=== PATIENT | male | born 1955 | race Caucasian/White ===

== ENCOUNTER → 2024-03-06 10:50 | Outpatient (REF) | payer OTHER, SELFPAY ==
[2024-03-06 13:17] LABS: % Basophils 0.7 % (0-2); % Eosinophils 0.9 % (0-6); % Immature Granulocytes 0.3 % (0-0.5); % Lymphocytes 16.3 % (20.5-51.1); % Monocytes 5.7 % (1.7-9.3); % Neutrophils 76.1 % (42.2-75.2); Absolute Basophils 0.1 10^3/uL (0-0.2); Absolute Eosinophils 0.1 10^3/uL (0-0.7); Absolute Lymphocytes 1.8 10^3/uL (1.2-3.4); Absolute Monocytes 0.6 10^3/uL (0.1-0.6); Absolute Neutrophils 8.2 10^3/uL (1.4-6.5); Hematocrit 42.9 % (39.0-52.0); Hemoglobin 13.8 g/dL (13.0-18.0); Mean Corp Hgb Conc. 32.2 g/dL (33.0-37.0); Mean Corpuscular Hgb 27.6 pg (27.0-31.0); Mean Corpuscular Volume 85.8 fL (80.0-94.0); Nucleated Red Blood Cells % 0 % (-); Platelet Count 282 10^3/uL (130-400); Red Cell Dist. Width 14.3 % (11.5-14.5); White Blood Cell Count 10.7 10^3/uL (4.8-10.8)
[2024-03-06 13:32] LABS: Urine Albumin 2+ (Neg - Trace); Urine Bilirubin Negative (Negative); Urine Character Clear (Clear); Urine Color Yellow; Urine Glucose 3+ (Negative); Urine Ketone Negative (Negative); Urine Leukocyte Negative (Negative); Urine Nitrite Negative (Negative); Urine Occult Blood Negative (Negative); Urine Urobilinogen Negative (Neg - 1+)
[2024-03-06 13:49] LABS: ALT (SGPT) 14 U/L (0-50); AST (SGOT) 18 U/L (17-59); Albumin 4.5 g/dl (3.5-5.0); Blood Urea Nitrogen 41 mg/dl (9-20); Calcium 9.1 mg/dl (8.4-10.2); Carbon Dioxide 30 mmol/L (22-30); Chloride 100 mmol/L (98-107); Glucose 151 mg/dl (70-99); HDL Cholesterol 45 mg/dl; LDL Cholesterol, Calculated 89 mg/dl; Potassium 4.2 mmol/L (3.5-5.1); Sodium 138 mmol/L (135-145); Total Bilirubin 0.4 mg/dl (0.2-1.3); Total Cholesterol 150 mg/dl (50-199); Total Protein 7.5 g/dl (6.3-8.2); Triglyceride 82 mg/dl (10-149); Very Low Density Lipoprotein 16 mg/dl (0-30); eGFR 31.43
[2024-03-06 13:50] LABS: Glycohemoglobin (HgbA1c) 7.6 % (4.0-5.6)
[2024-03-06 14:03] LABS: Alkaline Phosphatase 87 U/L (38-126); Vitamin D, 25-OH*** 35.4 ng/mL (30-80)
[2024-03-06 14:08] LABS: Urine Mucus Moderate
[2024-03-06 14:09] LABS: Urine Amorphous Seen; Urine Hyaline Cast 0-2 /LPF (0-2)
[2024-03-06 14:11] LABS: Urine Red Blood Cell 0-2 /HPF (0-2)
[2024-03-06 14:12] LABS: Urine White Cell 0-2 /HPF (0-5)
[2024-03-06 14:16] LABS: PSA, Total - Screen 0.62 ng/ml (0.0-4.0); TSH Reflex To Free T4 1.79 uIU/ml (0.47-4.68)
[2024-03-06 18:05] LABS: Microalbumin, Random Urine > 57.0 mg/dl (0.6-1.7)
== END ==
LOC: HWLAB 10:50
PROVIDERS: ATTENDING PHYSICIAN Family Medicine
DX: F11.20 Opioid dependence, uncomplicated (principal); D63.1 Anemia in chronic kidney disease; N18.30 Chronic kidney disease, stage 3 unspecified; J44.9 Chronic obstructive pulmonary disease, unspecified; E11.65 Type 2 diabetes mellitus with hyperglycemia; Z79.4 Long term (current) use of insulin
CPT/HCPCS: 36415; 80053; 80061; 81003; 81015; 82043; 82306; 82570; 83036; 84443; 85025; G0103

== ENCOUNTER 2024-04-12 21:06 | Emergency (ER) | payer OTHER, SELFPAY ==
[2024-04-12 21:09] VITALS: BP 161/71
--- NOTE | 2024-04-13 00:32 | ED.GENMED ---
History of Present Illness
General
Chief Complaint: Extremity Pain (non-traumatic)
Time Seen by Provider: 04/13/24 00:32
History of Present Illness
History of Present Illness:
TIME OF INITIAL ENCOUNTER: 12:35 AM
HPI: Patient presents with left lower extremity discomfort without trauma. The pain includes his low back and radiates into the left knee. He had a left knee replacement in the past. He has no fevers. He has no shortness of breath. He was
concerned because he did have a blood clot in his right leg managed with Eliquis for 2 years up until about 4 months ago.
EXAM:
GENERAL: Well appearing in only minimal distress when he attempts to move the left lower extremity
HEENT: Moist oral mucosa
NEUROLOGIC: Excellent strength all extremities, no obvious coordination deficits
BACK: Borderline positive straight leg raise in the left lower extremity, surgical scars noted to both knees, no significant joint effusion, slightly decreased active range of motion at the left hip and knee
PSYCHIATRIC: Appropriate mental status, normal insight and judgement
EXTREMITIES: Nontender, no edema, moves all extremities equally
SKIN: No rash, no lesions
NUMBER AND COMPLEXITY OF PROBLEMS ADDRESSED AT THE ENCOUNTER
� Chronic conditions affecting care: CAD, high blood pressure, IDDM
� Acute Exacerbation and/or Progression of Chronic Illness: This is an acute problem
� Differential Diagnosis includes: No evidence for septic joint, osteoarthritis, DVT, bursitis, sciatica
AMOUNT AND/OR COMPLEXITY OF DATA TO BE REVIEWED AND ANALYZED
� I performed an independent evaluation of and my interpretation is:
EKG:
CT:
X-rays: I personally reviewed x-ray and agree with radiologist interpretation that there is no sign of an acute fracture, bilateral mild osteoarthritis noted both hips, and post surgery knee is also noted.
Laboratory Studies: Creatinine 2.3 which is near baseline, mild leukocytosis noted
Other: Ultrasound shows no DVT
� Review of other/old records: No old records available for review
� Clinical information was obtained by an independent historian: I spoke to son at bedside
� Prescriptions/Medications Considered but not given:
� Further testing considered but not performed:
RISK OF COMPLICATIONS AND/OR MORBIDITY OR MORTALITY OF PATIENT MANAGEMENT
� Social determinants of health affecting care: Lives at home
� Discussion with other providers:
� Escalation of care including admission/observation vs risk of discharge considered: Given patient's history of DVT and similar sensation now involving the left side, will obtain ultrasound. Plain film imaging relatively
unremarkable.
ANY OTHER UPDATES:
2 AM: I reassessed patient. Patient already sees pain management. They put him on Celebrex. He is already taking Percocet. I advised against further Celebrex use due to the renal insufficiency and he states he had the already stopped the
Celebrex. We also talked about trying physical therapy again. Will try low-dose prednisone but I did inform him that we will raise sugars.
Phy Exam
Physical Exam
Physical Exam:
See HPI
Course
Orders/Labs/Results
Orders:
Orders
04/12/24 21:14
CR Hip - LT w/wo Pel 2-3 Vw* Urgent
Comment:
Reason For Exam: pain
Include a pelvis x-ray?: Yes
Knee, Left 4 or More Views [CR Knee - Left 4 Or More View*] Urgent
Comment:
Reason For Exam: pain
04/13/24 00:35
US Legs, Left [US Periph Venous LOWER Ext LT] Urgent
Comment:
Reason For Exam: hx dvt, discomfort l prox thigh
04/13/24 00:42
Basic Metabolic Panel Urgent
Complete Blood Count/No Diff Urgent
Abnormal Lab Results
04/13/24
00:42
WBC 13.5 H 10^3/uL
(4.8-10.8)
Carbon Dioxide 31 H mmol/L
(22-30)
BUN 40 H mg/dl
(9-20)
Creatinine 2.4 H mg/dL
(0.7-1.3)
Glucose 171 H mg/dl
(70-99)
04/13/24 00:42
04/13/24 00:42
Vital Signs
Initial and Last Documented VS:
Initial Vital Signs
Temp Pulse Resp BP Pulse Ox
36.9 C 71 16 161/71 98
04/12/24 21:09 04/12/24 21:09 04/12/24 21:09 04/12/24 21:09 04/12/24 21:09
Last Documented Vital Signs
Temp Pulse Resp BP Pulse Ox
36.9 C 71 16 153/84 95
04/12/24 21:09 04/12/24 21:09 04/12/24 21:09 04/13/24 01:00 04/13/24 01:15
*Critical Care Note
Total Time (30-74mins, 75-104mins- exclusive of procedures): Not Applicable
ED Attending Note
-
Portions of this chart may have been created with voice recognition software.� Occasional wrong word or��sound alike� substitutions may have occurred due to the inherent limitations of voice recognition software.
Discharge Plan
Departure
Patient Disposition: Home (Routine Discharge)
Date of Disposition: 04/13/24
Time of Disposition: 01:53
Patient with high blood pressure during this ER visit?: Yes
Discharge Problem:
Lower extremity pain, left
Instructions: Sciatica ED, BLOOD PRESSURE
Prescriptions:
New
prednisone 20 mg tablet
20 mg PO DAILY Qty: 5 0RF
Referrals:
Mario Blevins, DO [Family Provider] -
Activity Restrictions/Additional Instructions:
The ultrasound of the left lower extremity shows no sign of blood clot. X-rays show some mild degenerative disease. Kidney function is impaired with a creatinine of 2.4�similar to what it was just over a month ago. We can try a Medrol Dosepak to
see if this helps the back pain however this will raise your blood sugars. Follow-up with your pain management doctor. I also recommend that you talk to your primary care doctor regarding physical therapy again.
Interventions
Interventions:
*Risk Screen - Suicide Last Done: 04/12/24 21:09
*General Assessment Last Done: 04/12/24 21:09
*Neglect/Abuse Screening Last Done: 04/13/24 00:55
ED- Fall Risk Assessment Last Done: 04/13/24 00:55
*ED COVID-19 Vaccine History Last Done: 04/12/24 21:09
ED- Cardiac Assessment Last Done: 04/13/24 00:55
ED-Musculoskeletal Assessment Last Done: 04/13/24 00:55
ED- Pulmonary Assessment Last Done: 04/13/24 00:55
ED-Peripheral Vascular Assessment Last Done: 04/13/24 00:55
ED-Skin Assessment Last Done: 04/13/24 00:55
Discharge Date and Time
Print Language: LITHUANIAN
[2024-04-13 00:41] VITALS: BP 156/80
[2024-04-13 00:55] VITALS: BMI 30.6
[2024-04-13 00:58] LABS: Hematocrit 40.8 % (39.0-52.0); Hemoglobin 13.6 g/dL (13.0-18.0); Mean Corp Hgb Conc. 33.3 g/dL (33.0-37.0); Mean Corpuscular Volume 84.1 fL (80.0-94.0); Mean Platelet Volume 9.4 fL (7.4-10.4); Platelet Count 253 10^3/uL (130-400); Red Blood Cell Count 4.85 10^6/uL (4.70-6.10); Red Cell Dist. Width 14.2 % (11.5-14.5); White Blood Cell Count 13.5 10^3/uL (4.8-10.8)
[2024-04-13 01:00] VITALS: BP 153/84
[2024-04-13 01:12] LABS: Blood Urea Nitrogen 40 mg/dl (9-20); Calcium 8.8 mg/dl (8.4-10.2); Carbon Dioxide 31 mmol/L (22-30); Chloride 101 mmol/L (98-107); Estimated Creatinine Clearance 32 ml/min; Glucose 171 mg/dl (70-99); Potassium 4.3 mmol/L (3.5-5.1); Sodium 141 mmol/L (135-145); eGFR 28.32
[2024-04-13 02:00] VITALS: BP 164/76
== END 2024-04-13 02:15 | disposition home or self-care (01) ==
LOC: EMR 21:06
PROVIDERS: EMERGENCY PHYSICIAN Emergency Medicine; FAMILY PHYSICIAN Family Medicine
DX: M79.605 Pain in left leg (principal); M54.50 Low back pain, unspecified; N28.9 Disorder of kidney and ureter, unspecified; Z86.718 Personal history of other venous thrombosis and embolism; Z96.652 Presence of left artificial knee joint
CPT/HCPCS: 99284; 73502; 73564; 80048; 85027; 93971

== ENCOUNTER 2024-07-27 20:43 | Inpatient (IN) | payer OTHER, SELFPAY ==
[2024-07-27 17:49] VITALS: BP 181/92
[2024-07-27 18:13] VITALS: BMI 29.6
[2024-07-27 18:14] VITALS: BP 174/68
--- NOTE | 2024-07-27 18:16 | ED.GENMED ---
History of Present Illness
General
Chief Complaint: Breathing Problem
Source: patient and family
Time Seen by Provider: 07/27/24 18:09
History of Present Illness
History of Present Illness:
68-year-old male with past medical history of CAD status post CABG, hypertension, hyperlipidemia, insulin-dependent diabetes presenting to the ER after he started to feel unwell last night noting some generalized fatigue and some mild shortness of
breath, slight cough productive of a brown sputum, symptoms worsening today. Patient states that he does have an inhaler that he uses intermittently but did not use this at home today. He states that he ultimately came to the ER because he felt as
if he could not take a deep breath, felt himself wheezing and the worsening cough. No known sick contacts, recent travel or recent antibiotics. He denies any fevers, chills, rigors, bowel changes or urinary symptoms. Denies any lower extremity
edema, exertional dyspnea or orthopnea
Past History
Past History
ED Past Medical History: CAD, HTN, Hypercholesterolemia and IDDM
ED Past Surgical History: Cardiac, Cholecystectomy and Orthopedic
Social History
Tobacco: Smoker (Previously smoked 2 packs/day but down to 4 cigarettes/day)
Alcohol: None
Drug: None
Personal:
Living: with family
Review of Systems
Review of Systems
All Other Systems: ROS reviewed and negative except as documented in HPI and ROS
Phy Exam
Physical Exam
Physical Exam:
GENERAL: Alert , in no apparent distress, increased work of breathing, audible wheeze
HEAD: Normocephalic atraumatic
EYE: conjunctiva clear
NECK: Supple
ENT: o/p clr, mmm.
CARDIAC: and rhythm, borderline tachycardic rate
LUNGS: Increased work of breathing, audible expiratory wheeze anterior and posterior lung rawls, tachypneic, no rales or rhonchi
NEUROLOGICAL: Alert and oriented
SKIN: Warm and dry, skin intact.
MUSCULOSKELETAL: well perfused. No edema
PSYCH: Normal and appropriate interaction.
Scores
Heart Failure Risk
Heart Failure Risk Score: Not Applicable
Heart Score for Chest Pain Patients
STEMI patient?: Not applicable
Withdrawal Assessment of Alcohol
Withdrawal Assessment Completed?: Not applicable
Course
Orders/Labs/Results
Orders:
Orders
07/27/24 18:15
Electrocardiogram (*1) Urgent
Reason for Study: Shortness of Breath
EKG- Treatment ONCE
Ipratropium/Albuterol Sulfate [Duoneb] 3 ml INH R NOW STA
MethylPREDNISolone PF [Solu-Medrol Pf] 40 mg IV NOW STA
CR Chest Portable - 1 View Urgent
Comment:
Reason For Exam: SOB, cough, hypoxia
Reason Study Needs to be Portable: Unable to Transport
07/27/24 18:43
Basic Metabolic Panel Urgent
Complete Blood Count/With Diff Urgent
NT-proBNP Urgent
07/27/24 19:37
CefTRIAXone [Rocephin] 1,000 mg IV NOW STA
Doxycycline [Vibramycin] 100 mg PO NOW STA
07/27/24 19:38
COVID-19 Antigen Urgent
Source: Nasal Swab
Influenza A+B Rapid Molecular Urgent
MAHNAZ Source: Nasal Swab
Specimen Description:
07/27/24 19:42
Albuterol Sulfate [Ventolin Nebules] 10 mg INH R NOW STA
Sterile Water [Sterile Water For Injection] 10 ml .ROUTE .STK-MED ONE
07/27/24 19:56
Admit/Transfer Patient As Directed
Co-Sign Provider:
Level of Care: Inpatient admission
Assign to:: Medical/Surgical
Physician / Group: Kenneth
Diagnosis: Hypoxia, Pnuemonia
Reason for Hospitalization: IV antibiotics
Expected length of stay greater than two midnights?: Yes
ELOS- Estimated Length of Stay in days: 3
I certify the patient meets the requirements for IP care: Yes
PRN Pain Medication Management As Directed
May give lesser potent ordered pain med per pt: Yes
preference::
Protocol:: Medication orders for pain may be administered in a
manner that supports deferring to patient preference
when the pt is:
- Requesting an ordered lesser potent pain medication.
Least to most potent pain medications are defined
as: acetaminophen < NSAID < tramadol < opioids
(morphine, oxycodone, hydromorphone).
- Requesting a lesser dose of the same medication IF
ORDERED.
- Requesting a less intrusive route of administration
if both routes are prescribed by the provider (PO <
IV).
07/27/24 19:58
Code Status As Directed
Resuscitation Status: Full Code
07/27/24 20:00
Sputum Culture [Respiratory Culture/Gram Stain] Routine
MAHNAZ Source: Sputum
Specimen Description:
Abnormal Lab Results
07/27/24
18:43
WBC 14.0 H 10^3/uL
(4.8-10.8)
Abs Immat Gran (auto) 0.1 H 10^3/uL
(0-0.05)
Absolute Neuts (auto) 12.5 H 10^3/uL
(1.4-6.5)
Absolute Lymphs (auto) 0.9 L 10^3/uL
(1.2-3.4)
Neutrophils % 89.2 H %
(42.2-75.2)
Lymphocytes % 6.2 L %
(20.5-51.1)
BUN 26 H mg/dl
(9-20)
Creatinine 1.8 H mg/dL
(0.7-1.3)
Glucose 162 H mg/dl
(70-99)
07/27/24 18:43
07/27/24 18:43
Vital Signs
Initial and Last Documented VS:
Initial Vital Signs
Temp Pulse Resp BP Pulse Ox
98.1 F 106 20 181/92 94
07/27/24 17:49 07/27/24 17:49 07/27/24 17:49 07/27/24 17:49 07/27/24 17:49
Last Documented Vital Signs
Temp Pulse Resp BP Pulse Ox
98.3 F 106 20 161/76 92
07/27/24 18:13 07/27/24 17:49 07/27/24 17:49 07/27/24 19:00 07/27/24 19:08
MDM/Problems Addressed
Differential Diagnosis Includes:
COVID, flu, other viral etiology, pneumonia, bronchitis, asthma/COPD, PE considered however given audible wheezing/abnormal lung sounds I have less suspicion for this.
MDM/Problems Addressed:
68-year-old male presenting to the ER for evaluation of gradually worsening shortness of breath over the last 24 hours, notes cough productive of a brownish sputum and increased fatigue during this time but no fevers. Patient satting between 86 to
88% on room air, placed on 2 L via the nasal cannula with response to around 94%. Given his audible wheeze will treat with a DuoNeb. I discussed with patient that given his history of diabetes if we were to treat with a steroid he may need to
change his insulin regimen as this will lead to hyperglycemia. Patient states he has had to do this before and expressed understanding. Chest x-ray ordered to evaluate for any potential pneumonia. Disposition pending.
*Radiology
Radiology exam reviewed: preliminary read by ED provider (Atelectasis versus early pneumonia within the left lower lung)
*Pulse Oximetry
Patient hypoxic: yes
*Second Baller Interpretation
Rate: tachycardiac
Rhythm: sinus
*Critical Care Note
Total Time (30-74mins, 75-104mins- exclusive of procedures): Not Applicable
Patient Management
Discussion with other providers: Hospitalist
Escalation/DeEscalation of care consider admission/obs:
Patient's chest x-ray shows questionable atelectasis versus pneumonia in the left lower lung. He has a elevated white blood cell count of 14,000. Given his smoking history combined with presenting symptoms will admit for continued oxygen and
supportive care, Rocephin and doxycycline ordered for community-acquired pneumonia. Patient to be kept on 2 L via nasal cannula. Hospitalist team accepts for continued evaluation and treatment.
ED Attending Note
-
Portions of this chart may have been created with voice recognition software.� Occasional wrong word or��sound alike� substitutions may have occurred due to the inherent limitations of voice recognition software.
Discharge Plan
Departure
Patient Disposition: Admit
Date of Disposition: 07/27/24
Time of Disposition: 19:38
Presentation/result/management discussed w/ accepting MD/DO: Hospitalist
Discharge Problem:
Pneumonia, Hypoxia
Prescriptions:
No Action
losartan 50 mg tablet
50 mg PO DAILY
atenolol 25 mg tablet
25 mg PO DAILY
cyanocobalamin (vitamin B-12) 1,000 mcg Tablet
1,000 mcg PO DAILY
hydralazine 25 mg tablet
25 mg PO TID
chlorthalidone 25 mg tablet
25 mg PO DAILY
aspirin 81 mg Tablet,Delayed Release (Dr/Ec)
81 mg PO DAILY
amlodipine 10 mg tablet
10 mg PO DAILY
pantoprazole 40 mg Tablet,Delayed Release (Dr/Ec)
40 mg PO DAILY
ezetimibe 10 mg tablet
10 mg PO DAILY
rosuvastatin 10 mg Tablet
10 mg PO HS
oxycodone 10 mg tablet
10 mg PO Q8HPRN PRN (Reason: moderate pain)
insulin degludec [Tresiba FlexTouch U-200] 200 unit/mL (3 mL) insulin pen
40 unit SC DAILY
dapagliflozin propanediol [Farxiga] 5 mg tablet
5 mg PO DAILY
Referrals:
Chidi Dobbs CRNP [Family Provider] -
Interventions
Interventions:
*Risk Screen - Suicide Last Done: 07/27/24 19:41
*General Assessment Last Done: 07/27/24 17:49
*Neglect/Abuse Screening Last Done: 07/27/24 19:41
*ED- Fall Risk Assessment Last Done: 07/27/24 18:13
*ED COVID-19 Vaccine History Last Done: 07/27/24 18:13
ED- Cardiac Assessment Last Done: 07/27/24 18:13
ED- Pulmonary Assessment Last Done: 07/27/24 18:19
Discharge Date and Time
Print Language: DJIBOUTIAN
[2024-07-27] MEDS: DUONEB 3 ML INH (18:35)
[2024-07-27] MEDS: SOLU-MEDROL PF 40 MG IV (18:48)
[2024-07-27 18:58] LABS: % Basophils 0.4 % (0-2); % Immature Granulocytes 0.4 % (0-0.5); % Lymphocytes 6.2 % (20.5-51.1); % Monocytes 3.8 % (1.7-9.3); % Neutrophils 89.2 % (42.2-75.2); Absolute Basophils 0.1 10^3/uL (0-0.2); Absolute Immature Granulocytes 0.1 10^3/uL (0-0.05); Absolute Lymphocytes 0.9 10^3/uL (1.2-3.4); Absolute Monocytes 0.5 10^3/uL (0.1-0.6); Absolute Neutrophils 12.5 10^3/uL (1.4-6.5); Hematocrit 41.2 % (39.0-52.0); Hemoglobin 14.3 g/dL (13.0-18.0); Mean Corp Hgb Conc. 34.7 g/dL (33.0-37.0); Mean Corpuscular Hgb 29.1 pg (27.0-31.0); Mean Corpuscular Volume 83.9 fL (80.0-94.0); Mean Platelet Volume 9.5 fL (7.4-10.4); Nucleated Red Blood Cells % 0 % (-); Platelet Count 173 10^3/uL (130-400); Red Blood Cell Count 4.91 10^6/uL (4.70-6.10); Red Cell Dist. Width 13.3 % (11.5-14.5)
[2024-07-27 19:00] VITALS: BP 161/76
[2024-07-27 19:11] LABS: Blood Urea Nitrogen 26 mg/dl (9-20); Carbon Dioxide 23 mmol/L (22-30); Chloride 107 mmol/L (98-107); Estimated Creatinine Clearance 38 ml/min; Glucose 162 mg/dl (70-99); Potassium 4.4 mmol/L (3.5-5.1); Sodium 141 mmol/L (135-145); eGFR 39.99
[2024-07-27 19:21] LABS: NT-proBNP 4620 pg/ml
[2024-07-27] MEDS: VIBRAMYCIN 100 MG PO (19:45)
[2024-07-27] MEDS: ROCEPHIN 1000 MG IV (19:45)
[2024-07-27] MEDS: VENTOLIN NEBULES 10 MG INH (19:47)
[2024-07-27 20:00] VITALS: BP 158/79
[2024-07-27 20:02] LABS: COVID-19 Antigen Negative (Negative)
--- NOTE | 2024-07-27 20:07 | HPS.HSE ---
Family Physician
-
Family Physician: MYRTLE Milligan
Chief Complaint
-
Cough and Shortness of Breath
History of Present Illness
Patient is a 68 y/o past medical history of coronary artery disease, hypertension, hyperlipidemia, diabetes mellitus, and chronic kidney disease who presents with cough and shortness of breath. Patient report symptoms started yesterday and gotten
progressively worse. He reports cough is productive of thick brownish mucus. He denies chest pain. He denies fevers, sweats or chills.
Medical History
Past Medical History
Past Medical History: Reports Other
Additional Past Medical History:
Coronary Artery Disease s/p CABG
Essential Hypertension
Hyperlipidemia
Diabetes Mellitus, Type II
CKD Stage IIIB
Anemia of Chronic Disease
Peripheral Neuropathy
Pulmonary Fibrosis
Mild Vascular Dementia
Depression
Right Lower Extremity DVT - May 2022
Past Surgical History: Reports Other
Additional Past Surgical History:
CABG
Bilateral Knee Replacement
Cervical Spine Surgery
Cholecystectomy
Social History
Tobacco: Smoker (Currently 3-4 cigarettes per day; >50 pack year)
Living: With Family
Family History
Family History: Not pertinent
Allergies / Home Medications
Allergies reflects when Allergies were last updated in [employer] [facility].
Home Medications with original date entered in [facility]
Allergy/Medication List:
Allergies
Allergy/AdvReac Type Severity Reaction Status Date / Time
No Known Allergies Allergy Verified 07/27/24 17:49
Home Medications
amlodipine 10 mg tablet 10 mg PO DAILY 07/27/24
aspirin 81 mg tablet,delayed release 81 mg PO DAILY 07/27/24
atenolol 25 mg tablet 25 mg PO DAILY 07/27/24
chlorthalidone 25 mg tablet 25 mg PO DAILY 07/27/24
cyanocobalamin (vitamin B-12) 1,000 mcg tablet 1,000 mcg PO DAILY 07/27/24
dapagliflozin propanediol 5 mg tablet (Farxiga) 5 mg PO DAILY 07/27/24
ezetimibe 10 mg tablet 10 mg PO DAILY 07/27/24
hydralazine 25 mg tablet 25 mg PO TID 07/27/24
insulin degludec 200 unit/mL (3 mL) subcutaneous pen (Tresiba FlexTouch U-200 insulin) 40 unit SC DAILY 07/27/24
losartan 50 mg tablet 50 mg PO DAILY 07/27/24
oxycodone 10 mg tablet 10 mg PO Q8HPRN PRN moderate pain 07/27/24
pantoprazole 40 mg tablet,delayed release 40 mg PO DAILY 07/27/24
rosuvastatin 10 mg tablet 10 mg PO HS 07/27/24
Review of Systems
-
A 12 point ROS was completed and negative except as noted: Yes
Constitutional: Denies Fever or Chills
Respiratory: Reports See HPI
Cardiac: Denies Chest Pain or Palpitations
Physical Exam
Vital Signs
Vital Signs
Temp Pulse Resp BP Pulse Ox
98.3 F 106 20 161/76 92
07/27/24 18:13 07/27/24 17:49 07/27/24 17:49 07/27/24 19:00 07/27/24 19:08
Physical Exam
General: Comfortable and Conversant
HEENT: Anicteric, Moist mucous membranes and Oxygen (Nasal Cannula)
Respiratory: Rhonchi (Diffuse) and Non Labored Respirations
Cardiac: S1/S2, Regular Rhythm and Tachycardia (Slightly)
GI: Soft and Non Tender
Rectal: Deferred by Provider
Musculoskeletal: No Clubbing, No Cyanosis and No Edema
Skin: Warm and Dry
Neuro: Awake, Alert, Oriented and Nonfocal/grossly intact
Psych: Calm
Laboratory Results
-
07/27/24 18:43
07/27/24 18:43
Data Reviewed
-
Diagnostic Radiology: Report Reviewed by me
Lab Data: Labs Reviewed by me
Impression/Plan
-
Acute Hypoxic Respiratory Insufficiency secondary to Acute COPD Exacerbation, and Pneumonia
-Continue supplemental oxygen
Sepsis secondary Pneumonia
-Continue ceftriaxone and doxycycline
-Check Sputum Culture
Acute COPD Exacerbation
-Continue DuoNeb QID and PRN
-Continue prednisone 40mg Daily
Coronary Artery Disease s/p CABG
-Continue aspirin
Essential Hypertension
-Continue amlodipine, atenolol, hydralazine and losartan
-hold chlorthalidone
Hyperlipidemia
-Continue Crestor and Zetia
Diabetes Mellitus, Type II
-Continue Farxiga
-Continue Lantus
-Monitor sugars and continue coverage insulin
CKD Stage IIIB
-Creatinine at baseline
DVT proph: SC Heparin
Code Status: Full Code
--- NOTE | 2024-07-27 20:20 | W.PN.UPDATE ---
Update Note
Progress Note Update
Patient seen in conjunction with NEWSP[employer]ER DISTRIBUTOR SUPERVISOR. I agree the findings on exam physical. I concur with assessment and plan listed otherwise.
Briefly this is a 68-year-old with past medical history of insulin-dependent diabetes, hypertension, CAD status post CABG, hyperlipidemia, chronic tobacco dependence, possible history of pulmonary fibrosis, presents to the emergency department with
approximately 1 day of worsening cough and shortness of breath.
Family reported that the patient started having symptoms 1 day ago. He reports cough congestion dyspnea on exertion and shortness of breath. Cough productive of brown sputum according to patient. Generalized weakness. He denies any chest pain.
He denies any lower extremity swelling. He denies palpitations lightheadedness or dizziness. He denies having fevers at home. Son reported that he also has some Chest congestion.
Patient reports ongoing tobacco use with 4 to 5 cigarettes daily. He has at least a [id number] history. Denies any recent hospitalizations. Denies any recent admissions or ED visits for shortness of breath or COPD.
He arrived in the emergency department with borderline low hypoxia to 92%, blood pressure was 161/76 with pulse rate of 106. Temperature was 98.3.
Chest x-ray shows a left lower lobe patchy opacity.
The white count was 14, rest of CBC was unremarkable. Electrolytes were all normal. His creatinine is at baseline at 1.8 with normal BUN. BNP is elevated at 4600.
A&P
68 y.o with CAD s/p cabg, diabetes, HTN, HLD presenting with productive cough, shortness of breath, coarse wheezes and rhonchi on examination. Xray with LLL PNA. Moderate increase in WOB.
- admit to med/surg
- will treat for pna with ceftriaxone/doxycyciline
- Prednisone taper
- duonebs RTC and PRN
- incentive spirometry
- supplemental O2 to keep sat > 90%
Insulin management per NEWSPAPER DISTRIBUTOR SUPERVISOR note
Continue CAD, HTN medications, monitor weights
DVT PPX - heparin sq
code status - full code
[2024-07-27 20:55] VITALS: BP 147/76; BMI 29.2
[2024-07-27] MEDS: DUONEB INH (20:56)
--- NOTE | 2024-07-27 21:30 | PTCARENOTE ---
Patient arrived from ED via stretcher. Patient AAOx3 able to make needs known. IV flushed and patent. Patient x1 assist with RW to bed from stretcher in hallway.
[2024-07-27 21:39] LABS: Glucose - Point of Care 174 mg/dl (70-99)
[2024-07-27] MEDS: MUCINEX 600 MG PO (21:42)
[2024-07-27] MEDS: APRESOLINE 25 MG PO (21:42)
[2024-07-27] MEDS: ROXICODONE 10 MG PO (21:42)
[2024-07-27] MEDS: CRESTOR 10 MG PO (21:42)
[2024-07-27] MEDS: LANTUS 0.4 UNITS SC (21:57)
[2024-07-27 23:00] VITALS: BP 142/81
[2024-07-27] MEDS: HEPARIN 5000 UNITS SC (23:00)
[2024-07-28 05:47] VITALS: BMI 29.3
[2024-07-28] MEDS: DUONEB 3 ML INH ×4 (07:32→17:32)
[2024-07-28 07:58] LABS: Glucose - Point of Care 227 mg/dl (70-99)
[2024-07-28 08:01] VITALS: BP 142/68
[2024-07-28 08:34] LABS: Hematocrit 38.9 % (39.0-52.0); Hemoglobin 12.9 g/dL (13.0-18.0); Mean Corp Hgb Conc. 33.2 g/dL (33.0-37.0); Mean Corpuscular Hgb 28.4 pg (27.0-31.0); Mean Corpuscular Volume 85.5 fL (80.0-94.0); Mean Platelet Volume 10.2 fL (7.4-10.4); Platelet Count 185 10^3/uL (130-400); Red Blood Cell Count 4.55 10^6/uL (4.70-6.10); Red Cell Dist. Width 13.4 % (11.5-14.5); White Blood Cell Count 10.7 10^3/uL (4.8-10.8)
[2024-07-28 08:52] LABS: Blood Urea Nitrogen 36 mg/dl (9-20); Calcium 8.8 mg/dl (8.4-10.2); Carbon Dioxide 26 mmol/L (22-30); Chloride 108 mmol/L (98-107); Estimated Creatinine Clearance 33 ml/min; Glucose 238 mg/dl (70-99); Potassium 4.7 mmol/L (3.5-5.1); Sodium 140 mmol/L (135-145); eGFR 33.24
[2024-07-28] MEDS: NOVOLOG FLEXPEN-MODERATE RESISTANCE 3 UNITS SC (08:54)
[2024-07-28] MEDS: TENORMIN 25 MG PO (09:20)
[2024-07-28] MEDS: PROTONIX 40 MG PO (09:22)
[2024-07-28] MEDS: NORVASC 10 MG PO (09:22)
[2024-07-28] MEDS: FARXIGA 5 MG PO (09:22)
[2024-07-28] MEDS: DELTASONE 40 MG PO (09:23)
[2024-07-28] MEDS: ASPIR LOW (ENTERIC COATED) 81 MG PO (09:23)
[2024-07-28] MEDS: ZETIA 10 MG PO (09:23)
[2024-07-28] MEDS: VIBRAMYCIN 100 MG PO ×2 (09:23→20:06)
[2024-07-28] MEDS: MUCINEX 600 MG PO ×2 (09:23→20:05)
[2024-07-28] MEDS: HEPARIN 5000 UNITS SC ×3 (09:24→23:47)
[2024-07-28] MEDS: APRESOLINE 25 MG PO ×2 (09:26→21:16)
[2024-07-28] MEDS: COZAAR 50 MG PO (09:26)
[2024-07-28] MEDS: ROXICODONE 10 MG PO ×2 (09:33→18:31)
--- NOTE | 2024-07-28 10:06 | W.PN.HOSP.TC ---
Addendum entered and electronically signed by Helena Nice MD 07/28/24 14:04:
I saw and evaluated the patient independently. I reviewed the resident�s note and agree with findings and plan as documented by Dr. Onofre.
GENERAL: well developed, well nourished, male in no apparent distress
HEENT: NC/AT--2L O2 NC in place
HEART: regular rate and rhythm, +S1, +S2
LUNGS : raspy breath sounds throughout
ABDOM: soft, nontender, nondistended, + bowel sounds
EXT: no cyanosis, clubbing, or edema
NEUROLOGIC: grossly intact
sepsis (POA) with Acute Hypoxic Respiratory failure possibly secondary to pneumonia with COPD exacerbation --CXR suspicious for LLL PNA--wean O2 to off as able--cont steroids with taper, cont rocephin/doxy--follow cultures
Coronary Artery Disease s/p CABG--Continue aspirin
Essential Hypertension--Continue amlodipine, atenolol, hydralazine and losartan--Hold chlorthalidone
Hyperlipidemia--Continue Crestor and Zetia
Diabetes Mellitus, Type II--Continue Farxiga--Continue Lantus--On Accuchecks with ISS coverage
CKD Stage IIIB--Creatinine 2.1 likely at baseline
DVT proph-- SC Heparin
Code Status-- Full Code
Original Note:
Today's Communication/Plan
-
- Sputum culture follow-up
- Continue antibiotics
- Continue prednisone with a tapering plan
- Wean supplementary oxygen as able to
- Follow-up temperature curve, cbc, cmp and vitals
Assessment / Plan
Assessment / Plan
#Acute Hypoxic Respiratory failure possibly secondary to pneumonia versus COPD exacerbation
-Chest x-ray: Left lower lung suspicious for pneumonia
-Placed on supplemental oxygen
-Saturating around 90s with 3 L of nasal supplementary oxygen
- Wean as able to
- Continue inhalers
- Continue prednisone with a tapering plan(on 40 mg)
#Sepsis secondary Pneumonia
-Meets 2 SIRS criteria (including tachycardia and elevated WBC)
-Continue ceftriaxone and doxycycline
-Sputum Culture pending to be [id number] sputum culture results
- Follow-up vitals and temperature curve
#Coronary Artery Disease s/p CABG
-Continue aspirin
#Essential Hypertension
-Continue amlodipine, atenolol, hydralazine and losartan
-Hold chlorthalidone
#Hyperlipidemia
-Continue Crestor and Zetia
#Diabetes Mellitus, Type II
-Continue Farxiga
-Continue Lantus
-On Accu-Cheks
- On ISS
#CKD Stage IIIB
-Creatinine 2.1 likely at baseline
DVT proph: SC Heparin
Code Status: Full Code
Anticipated Discharge: 24 - 48 hours
Subjective/Interval History
-
Date of Service: July 28, 2024
Patient reports coughing with sputum and shortness of breath. Denies any chest pain or back pain and other problems.
Objective Data
-
Labs:
Laboratory Results
07/28/24
06:28
WBC 10.7
Hgb 12.9 L
Hct 38.9 L
Plt Count 185
Sodium 140
Potassium 4.7
Chloride 108 H
Carbon Dioxide 26
BUN 36 H
Creatinine 2.1 H
Glucose 238 H
Calcium 8.8
Vital Signs:
Vital Signs
Temp Pulse Resp BP Pulse Ox
98 F 67 21 142/68 94
07/28/24 08:01 07/28/24 09:20 07/28/24 08:01 07/28/24 09:26 07/28/24 08:01
I&O
07/27/24 07/28/24 07/29/24
06:59 06:59 06:59
Intake Total 240 / 240
Output Total 400 / 400
Balance -160 / -160
Review of Systems
-
History Source: Patient
EENT: Reports No Symptoms Reported
Respiratory: Reports Cough and Other (Shortness of breath)
Abdomen/GI: Reports No Symptoms
Genitourinary: Reports No Symptoms
Musculoskeletal: Reports No Symptoms
Skin: Reports No Symptoms
Neuro: Reports No Symptoms
Physical Exam
-
HEENT: Normocephalic and Atraumatic
Respiratory: Crackles
Cardiac: Regular Rhythm and S1/S2
GI: Soft, Nontender and Nondistended
Musculoskeletal: No Clubbing, No Cyanosis and No Edema
Skin: Warm and IV Access / Catheter Site
Neuro: Awake, Alert, Oriented and AO x 3
Psych: Calm
[2024-07-28 11:05] VITALS: BP 115/76; BP 155/78; PULSE 94; O2SAT 95
[2024-07-28 12:00] VITALS: BP 115/76; BP 155/78; PULSE 104; PULSE 95; O2SAT 95
[2024-07-28 12:21] LABS: Glucose - Point of Care 282 mg/dl (70-99)
[2024-07-28] MEDS: NOVOLOG FLEXPEN-MODERATE RESISTANCE 5 UNITS SC (12:25)
[2024-07-28 13:08] LABS: Glycohemoglobin (HgbA1c) 7.3 % (4.0-5.6)
--- NOTE | 2024-07-28 15:34 | CM ---
CM met with Romeo at bedside to complete IA. He lives with his son and dtr-in-law in an inlaw suite; reports being (I) amb with rollator and (I) ADLs. Pt manages his own medications. Family provides assistance for most ADLs, shopping and cooking.
Pt has a stall shower with grab bars and a shower chair. Son supervises pt for showers. Son also takes care of cooking, cleaning and transportation.
Home Care is recommended. Pt does not recall having home care in the past. Will need to choose an agency if desired.
Plan: Discharge to home with family; pt considering home care services.
[2024-07-28 15:37] VITALS: BP 115/70
[2024-07-28] MEDS: APRESOLINE PO (16:13)
[2024-07-28 17:32] LABS: Glucose - Point of Care 322 mg/dl (70-99)
[2024-07-28] MEDS: NOVOLOG FLEXPEN-MODERATE RESISTANCE 7 UNITS SC (17:33)
[2024-07-28] MEDS: ROCEPHIN 1000 MG IV (20:05)
[2024-07-28] MEDS: STERILE WATER FOR INJECTION 10 ML IV (20:05)
[2024-07-28 21:05] LABS: Glucose - Point of Care 375 mg/dl (70-99)
[2024-07-28 21:15] VITALS: BP 143/84
[2024-07-28] MEDS: CRESTOR 10 MG PO (21:17)
[2024-07-28] MEDS: LANTUS 0.4 UNITS SC (21:17)
[2024-07-28] MEDS: NOVOLOG FLEXPEN 7 UNITS SC (21:23)
[2024-07-28 23:32] LABS: Glucose - Point of Care 295 mg/dl (70-99)
[2024-07-28 23:34] VITALS: BP 152/73
[2024-07-29 03:12] LABS: Glucose - Point of Care 212 mg/dl (70-99)
[2024-07-29 06:00] VITALS: BMI 29.3
[2024-07-29 07:11] LABS: Hematocrit 37.9 % (39.0-52.0); Hemoglobin 12.6 g/dL (13.0-18.0); Mean Corp Hgb Conc. 33.2 g/dL (33.0-37.0); Mean Corpuscular Hgb 28.3 pg (27.0-31.0); Mean Platelet Volume 10.6 fL (7.4-10.4); Platelet Count 196 10^3/uL (130-400); Red Blood Cell Count 4.46 10^6/uL (4.70-6.10); Red Cell Dist. Width 13.4 % (11.5-14.5)
[2024-07-29] MEDS: DUONEB 3 ML INH ×4 (07:20→19:55)
[2024-07-29 07:37] LABS: ALT (SGPT) 12 U/L (0-50); AST (SGOT) 21 U/L (17-59); Albumin 3.6 g/dl (3.5-5.0); Alkaline Phosphatase 62 U/L (38-126); Blood Urea Nitrogen 52 mg/dl (9-20); Calcium 9.1 mg/dl (8.4-10.2); Carbon Dioxide 25 mmol/L (22-30); Chloride 108 mmol/L (98-107); Estimated Creatinine Clearance 30 ml/min; Glucose 141 mg/dl (70-99); Potassium 4.5 mmol/L (3.5-5.1); Sodium 142 mmol/L (135-145); Total Bilirubin 0.2 mg/dl (0.2-1.3); Total Protein 6.4 g/dl (6.3-8.2)
[2024-07-29] MEDS: ZETIA 10 MG PO (07:52)
[2024-07-29] MEDS: NORVASC 10 MG PO (07:53)
[2024-07-29] MEDS: ASPIR LOW (ENTERIC COATED) 81 MG PO (07:53)
[2024-07-29] MEDS: PROTONIX 40 MG PO (07:53)
[2024-07-29] MEDS: DELTASONE 40 MG PO (07:55)
[2024-07-29] MEDS: VIBRAMYCIN 100 MG PO ×2 (07:55→20:23)
[2024-07-29] MEDS: FARXIGA 5 MG PO (07:55)
[2024-07-29] MEDS: MUCINEX 600 MG PO ×2 (07:55→20:22)
[2024-07-29] MEDS: TENORMIN 25 MG PO (07:55)
[2024-07-29] MEDS: APRESOLINE 25 MG PO ×2 (07:55→22:00)
[2024-07-29] MEDS: HEPARIN 5000 UNITS SC ×3 (07:55→23:41)
[2024-07-29] MEDS: COZAAR 50 MG PO (07:55)
[2024-07-29 08:00] LABS: Glucose - Point of Care 142 mg/dl (70-99)
[2024-07-29 08:02] VITALS: BP 145/75
[2024-07-29] MEDS: NOVOLOG FLEXPEN-MODERATE RESISTANCE SC (08:02)
[2024-07-29] MEDS: ROXICODONE 10 MG PO ×2 (08:06→22:02)
--- NOTE | 2024-07-29 08:09 | W.PN.HOSP.TC ---
Addendum entered and electronically signed by Helena Nice MD 07/29/24 14:02:
I saw and evaluated the patient independently. I reviewed the resident�s note and agree with findings and plan as documented by Dr. Onofre.
GENERAL: well developed, well nourished, male in no apparent distress
HEENT: NC/AT--off O2
HEART: regular rate and rhythm, +S1, +S2
LUNGS : raspy breath sounds with coarse crackles
ABDOM: soft, nontender, nondistended, + bowel sounds
EXT: no cyanosis, clubbing, or edema
NEUROLOGIC: grossly intact
sepsis (POA) with Acute Hypoxic Respiratory failure possibly secondary to pneumonia with COPD exacerbation --CXR suspicious for LLL PNA--now off O2--cont steroids with taper, change rocephin/doxy to oral med--follow cultures
Coronary Artery Disease s/p CABG--Continue aspirin
Essential Hypertension--Continue amlodipine, atenolol, hydralazine and losartan--Hold chlorthalidone
Hyperlipidemia--Continue Crestor and Zetia
Diabetes Mellitus, Type II--Continue Farxiga--Continue Lantus--On Accuchecks with ISS coverage
CKD Stage IIIB--Creatinine 2.1 likely at baseline
DVT proph-- SC Heparin
Code Status-- Full Code
Original Note:
Today's Communication/Plan
-
-Wean supplemental oxygen as able to
-Taper steroid dose for tomorrow morning dose
-Follow temperature curve and WBC
Assessment / Plan
Assessment / Plan
#Acute Hypoxic Respiratory failure possibly secondary to pneumonia versus COPD exacerbation
-Chest x-ray: Left lower lung suspicious for pneumonia
-Placed on supplemental oxygen
-Was Wean as able to from supplementary oxygen this am
-Continue inhalers as needed
- Continue prednisone with a tapering plan(on 40 mg)Planned to decrease to 30 mg o 07/30/24
#Sepsis secondary Pneumonia
-Meets 2 SIRS criteria (including tachycardia and elevated WBC)
-Continue ceftriaxone and doxycycline
-Sputum Culture pending to be [id number] sputum culture results
- Follow-up vitals and temperature curve
#Coronary Artery Disease s/p CABG
-Continue aspirin
#Essential Hypertension
-Continue amlodipine, atenolol, hydralazine and losartan
-Hold chlorthalidone
#Hyperlipidemia
-Continue Crestor and Zetia
#Diabetes Mellitus, Type II
-Continue Farxiga
-Continue Lantus
-On Accu-Cheks
- On ISS
#CKD Stage IIIB
-Creatinine 2.1 likely at baseline
DVT proph: SC Heparin
Code Status: Full Code
Anticipated Discharge: 24 - 48 hours
Subjective/Interval History
-
Date of Service: July 29, 2024
Patient reports feeling better. Reports his shortness of breath improved.
Objective Data
-
Labs:
Laboratory Results
07/29/24
06:05
WBC 13.0 H
Hgb 12.6 L
Hct 37.9 L
Plt Count 196
Sodium 142
Potassium 4.5
Chloride 108 H
Carbon Dioxide 25
BUN 52 H
Creatinine 2.3 H
Glucose 141 H
Calcium 9.1
Total Bilirubin 0.2
AST 21
ALT 12
Alkaline Phosphatase 62
Vital Signs:
Vital Signs
Temp Pulse Resp BP Pulse Ox
98 F 78 22 145/75 93
07/29/24 08:02 07/29/24 08:02 07/29/24 08:02 07/29/24 08:02 07/29/24 08:02
I&O
07/28/24 07/29/24 07/30/24
06:59 06:59 06:59
Intake Total 240 / 240 900 / 900
Output Total 400 / 400 800 / 800
Balance -160 / -160 100 / 100
Review of Systems
-
History Source: Patient
EENT: Reports No Symptoms Reported
Respiratory: Reports Cough
Cardiac: Reports No Symptoms
Abdomen/GI: Reports No Symptoms
Genitourinary: Reports No Symptoms
Musculoskeletal: Reports No Symptoms
Skin: Reports No Symptoms
Neuro: Reports No Symptoms
Physical Exam
-
General: Well Developed and Well Nourished
HEENT: Normocephalic and Atraumatic
Respiratory: Crackles
Cardiac: Regular Rhythm and S1/S2
GI: Soft, Nontender and Nondistended
Musculoskeletal: No Clubbing, No Cyanosis and No Edema
Skin: Warm
Neuro: Awake, Alert, Oriented and AO x 3
[2024-07-29 11:25] LABS: Glucose - Point of Care 247 mg/dl (70-99)
--- NOTE | 2024-07-29 12:28 | W.DCSUMMARY ---
Addendum entered and electronically signed by Helena Nice MD 07/30/24 16:16:
Read, reviewed, and agree. See same day progress note for additional details. Time spent coordinating care, DC planning, review of DC plan of care with resident, transition of care, review of records in EMR, med rec, consults, notes, d/w
consultants, nursing, family, and CM = 31 minutes
Original Note:
Discharge Summary
Discharge Data
Date of Admission: 07/27/24
Date of Discharge: 07/30/24
-
Pending Results: No
Hospital Course
Disposition : Home
Primary care physician : Chidi Dobbs CRNP
Principal Discharge diagnosis : Acute Hypoxic Respiratory failure possibly secondary to pneumonia, Sepsis possibly secondary to pneumonia
Chronic Discharge diagnosis : History of cardiovascular disease, Essential hypertension, Hyperlipidemia, Diabetes mellitus type 2, Chronic kidney disease stage IIIb
Hospital Course :
# Acute Hypoxic Respiratory failure possibly secondary to pneumonia and Sepsis possibly secondary to pneumonia: Patient is a 68-year-old male with a past medical history of CAD status post CABG, hypertension, hyperlipidemia, insulin-dependent
diabetes mellitus, questionable diagnosis of pulmonary fibrosis who presented to ER complaining from worsening shortness of breath and having cough with producing thick brownish mucus. The patient reported having these symptoms for just 1 day and
it got worsen quickly. The patient denied any chest pain, fever or chills at admission. At ER admission, patient was found hypoxic with saturation of 86 and tachypneic with respiratory rate of 20s and hypertensive with elevated BPs to 181/92 and
tachycardic. His CBC was remarkable for elevated WBC to 13.5 and his CMP was remarkable for elevated creatinine level to 1.8(likely at his baseline). His checks x-ray showed parenchymal opacity over the left lower lobe which was found suspicious
for pneumonia. He was placed on 2 L nasal supplemental oxygen and maintained his saturation over 90s and he was started on empiric antibiotics, steroids and inhalers. Patient is admitted to the hospital and his respiratory symptoms gradually
improved. He was gradually weaned from supplementary oxygen .He was discharged to complete a 7 days course of antibiotic treatment with Augmentin and steroid treatment with tapering dose. He was recommended to see his PCP in a week.
Other medical problems include history of cardiovascular disease, Essential hypertension, Hyperlipidemia, Diabetes mellitus type 2 and Chronic kidney disease stage IIIb. These chronic medical diseases were stable during the admission and were
treated as able to.
Important imaging findings :
07/27/2024 CR Chest Portable - 1 View
CLINICAL INDICATION: SOB, cough, hypoxia
TECHNIQUE: Portable AP sitting view of the chest obtained at 1822 hours
COMPARISON: No previous examination of the chest is available
FINDINGS: 4 mm radiodensity projecting over the lateral left upper lung, which is likely a calcified granuloma, for which no further imaging follow-up is recommended.
Mild subtle patchy parenchymal opacity projecting over the left lower lung, suspicious for pneumonia. No evidence for associated pleural effusion.
The right lung appears clear.
Cardiac silhouette and vascular markings appear within normal limits with no evidence for pulmonary edema. Sternal wires are present.
IMPRESSION:
Subtle patchy parenchymal opacity projecting over the left lower lung, suspicious for pneumonia.
Procedure findings :
Discharge Plan
-
Patient Disposition: Home with Home Care
Discharge Diagnosis/Procedures: Acute Hypoxic Respiratory failure possibly secondary to pneumonia
Sepsis possibly secondary to pneumonia
History of cardiovascular disease
Essential hypertension
Hyperlipidemia
Diabetes mellitus type 2
Chronic kidney disease stage IIIb
Diet: Diabetic, Carb Controlled
Activity: As tolerated
Driving Restrictions: As prior to admission
Bathing Restrictions: None
Other Services: VN
Referrals:
Chidi Dobbs CRNP [Family Provider] - in less than 1 week (Follow-up with your PCP for recheck for your BMP and CBC)
Prescriptions:
New
amoxicillin-pot clavulanate 875-125 mg tablet
1 tab PO Q12H 7 Days Qty: 14 0RF
prednisone 10 mg Tablet
10 mg PO DIRECTED 5 Days Qty: 11 0RF
Rx Instructions:
30 mg for 2 days, 20 mg for 2 days and 10 mg for 1 day
Continued
oxycodone 10 mg tablet
10 mg PO Q8HPRN PRN (Reason: moderate pain)
losartan 50 mg tablet
50 mg PO DAILY Qty: 0 0RF
atenolol 25 mg tablet
25 mg PO DAILY Qty: 0 0RF
cyanocobalamin (vitamin B-12) 1,000 mcg Tablet
1,000 mcg PO DAILY Qty: 0 0RF
hydralazine 25 mg tablet
25 mg PO TID Qty: 0 0RF
chlorthalidone 25 mg tablet
25 mg PO DAILY Qty: 0 0RF
aspirin 81 mg Tablet,Delayed Release (Dr/Ec)
81 mg PO DAILY Qty: 0 0RF
amlodipine 10 mg tablet
10 mg PO DAILY Qty: 0 0RF
pantoprazole 40 mg Tablet,Delayed Release (Dr/Ec)
40 mg PO DAILY Qty: 0 0RF
ezetimibe 10 mg tablet
10 mg PO DAILY Qty: 0 0RF
rosuvastatin 10 mg Tablet
10 mg PO HS Qty: 0 0RF
insulin degludec [Tresiba FlexTouch U-200] 200 unit/mL (3 mL) insulin pen
40 unit SC DAILY Qty: 0 0RF
dapagliflozin propanediol [Farxiga] 5 mg tablet
5 mg PO DAILY Qty: 0 0RF
Discharge Orders:
Discharge Patient (As Directed); Ordered 07/30/24
Ordered By: Ailyn Onofre
Discharge Date and Time
Discharge Date/Time: 07/30/24 13:16
Print Language: AMHARIC
[2024-07-29] MEDS: NOVOLOG FLEXPEN-MODERATE RESISTANCE 3 UNITS SC (12:39)
[2024-07-29 15:29] VITALS: BP 140/62; O2SAT 90
[2024-07-29 15:41] VITALS: BP 107/68
[2024-07-29] MEDS: APRESOLINE PO (16:05)
[2024-07-29 16:59] LABS: Glucose - Point of Care 350 mg/dl (70-99)
[2024-07-29] MEDS: NOVOLOG FLEXPEN-MODERATE RESISTANCE 7 UNITS SC (17:22)
[2024-07-29 20:17] LABS: Glucose - Point of Care 285 mg/dl (70-99)
[2024-07-29] MEDS: ROCEPHIN 1000 MG IV (20:22)
[2024-07-29] MEDS: STERILE WATER FOR INJECTION 10 ML IV (20:22)
[2024-07-29 20:49] LABS: Glucose - Point of Care 304 mg/dl (70-99)
[2024-07-29 22:00] VITALS: BP 122/59
[2024-07-29] MEDS: CRESTOR 10 MG PO (22:01)
[2024-07-29] MEDS: LANTUS 0.4 UNITS SC (22:01)
[2024-07-29 23:05] VITALS: BP 137/58
[2024-07-30 06:15] VITALS: BMI 29.4
[2024-07-30 06:38] LABS: Hematocrit 38.4 % (39.0-52.0); Hemoglobin 12.8 g/dL (13.0-18.0); Mean Corp Hgb Conc. 33.3 g/dL (33.0-37.0); Mean Corpuscular Hgb 28.4 pg (27.0-31.0); Mean Corpuscular Volume 85.3 fL (80.0-94.0); Mean Platelet Volume 9.6 fL (7.4-10.4); Platelet Count 196 10^3/uL (130-400); Red Cell Dist. Width 13.4 % (11.5-14.5); White Blood Cell Count 11.6 10^3/uL (4.8-10.8)
--- NOTE | 2024-07-30 07:01 | W.PN.HOSP.TC ---
Addendum entered and electronically signed by Helena Nice MD 07/30/24 16:15:
I saw and evaluated the patient independently. I reviewed the resident�s note and agree with findings and plan as documented by Dr. Onofre.
GENERAL: well developed, well nourished, male in no apparent distress
HEENT: NC/AT--off O2
HEART: regular rate and rhythm, +S1, +S2
LUNGS : raspy breath sounds with coarse crackles
ABDOM: soft, nontender, nondistended, + bowel sounds
EXT: no cyanosis, clubbing, or edema
NEUROLOGIC: grossly intact
sepsis (POA) with Acute Hypoxic Respiratory failure possibly secondary to pneumonia with COPD exacerbation --CXR suspicious for LLL PNA--now off O2--cont steroids with taper, change rocephin/doxy to oral med--OK for d/c
Coronary Artery Disease s/p CABG--Continue aspirin
Essential Hypertension--Continue amlodipine, atenolol, hydralazine and losartan--Hold chlorthalidone
Hyperlipidemia--Continue Crestor and Zetia
Diabetes Mellitus, Type II--Continue Farxiga--Continue Lantus--On Accuchecks with ISS coverage
CKD Stage IIIB--Creatinine 2.1 likely at baseline
DVT proph-- SC Heparin
Code Status-- Full Code
Original Note:
Today's Communication/Plan
-
-Discharge planning
Assessment / Plan
Assessment / Plan
#Acute Hypoxic Respiratory failure possibly secondary to pneumonia versus COPD exacerbation
-Chest x-ray: Left lower lung suspicious for pneumonia
-Was Wean as able to from supplementary oxygen on 07/29/2024 morning
-Continue inhalers as needed
- Continue prednisone with a tapering plan-on 30 mg now
#Sepsis secondary Pneumonia
-Meets 2 SIRS criteria (including tachycardia and elevated WBC)
-Continue ceftriaxone and doxycycline
-Sputum Culture pending to be obtained
- Follow-up vitals and temperature curve
#Coronary Artery Disease s/p CABG
-Continue aspirin
#Essential Hypertension
-Continue amlodipine, atenolol, hydralazine and losartan
-Hold chlorthalidone
#Hyperlipidemia
-Continue Crestor and Zetia
#Diabetes Mellitus, Type II
-Hemoglobin A1c 7.3
-Continue Farxiga
-Continue Lantus
-On Accu-Cheks
- On ISS
#CKD Stage IIIB
-Creatinine 2.1 likely at baseline
DVT proph: SC Heparin
Code Status: Full Code
Anticipated Discharge: Today
Subjective/Interval History
-
Date of Service: July 30, 2024
Feeling much better. No complaints.
Objective Data
-
Labs:
Laboratory Results
07/30/24
06:04
WBC 11.6 H
Hgb 12.8 L
Hct 38.4 L
Plt Count 196
Sodium Pending
Potassium Pending
Chloride Pending
Carbon Dioxide Pending
BUN Pending
Creatinine Pending
Glucose Pending
Calcium Pending
Total Bilirubin Pending
AST Pending
ALT Pending
Alkaline Phosphatase Pending
Vital Signs:
Vital Signs
Temp Pulse Resp BP Pulse Ox
97.8 F 95 18 137/58 93
07/29/24 23:05 07/29/24 23:05 07/29/24 23:05 07/29/24 23:05 07/29/24 23:05
I&O
07/29/24 07/30/24 07/31/24
06:59 06:59 06:59
Intake Total 900 / 900 2100 / 2100
Output Total 800 / 800 1300 / 1300
Balance 100 / 100 800 / 800
Review of Systems
-
History Source: Patient
All other systems: Reviewed and negative
Physical Exam
-
General: Well Developed, Well Nourished, No Apparent Distress and Comfortable
HEENT: Normocephalic and Atraumatic
Respiratory: Crackles
Cardiac: Regular Rhythm and S1/S2
GI: Soft, Nontender and Nondistended
Musculoskeletal: No Clubbing, No Cyanosis and No Edema
Skin: Warm
Neuro: Awake, Alert, Oriented, AO x 3 and Nonfocal/Grossly Intact
Psych: Calm
[2024-07-30 07:02] LABS: ALT (SGPT) 15 U/L (0-50); AST (SGOT) 18 U/L (17-59); Albumin 3.6 g/dl (3.5-5.0); Alkaline Phosphatase 63 U/L (38-126); Blood Urea Nitrogen 57 mg/dl (9-20); Calcium 8.8 mg/dl (8.4-10.2); Carbon Dioxide 24 mmol/L (22-30); Chloride 110 mmol/L (98-107); Estimated Creatinine Clearance 30 ml/min; Glucose 190 mg/dl (70-99); Potassium 3.8 mmol/L (3.5-5.1); Sodium 144 mmol/L (135-145); Total Bilirubin 0.2 mg/dl (0.2-1.3); Total Protein 6.3 g/dl (6.3-8.2)
[2024-07-30 07:05] VITALS: BP 158/69
[2024-07-30 07:11] LABS: Glucose - Point of Care 235 mg/dl (70-99)
[2024-07-30] MEDS: DUONEB 3 ML INH ×2 (07:30→11:08)
[2024-07-30] MEDS: TENORMIN 25 MG PO (07:36)
[2024-07-30] MEDS: APRESOLINE 25 MG PO (07:36)
[2024-07-30] MEDS: FARXIGA 5 MG PO (07:36)
[2024-07-30] MEDS: MUCINEX 600 MG PO (07:36)
[2024-07-30] MEDS: ASPIR LOW (ENTERIC COATED) 81 MG PO (07:36)
[2024-07-30] MEDS: ZETIA 10 MG PO (07:36)
[2024-07-30] MEDS: NORVASC 10 MG PO (07:37)
[2024-07-30] MEDS: PROTONIX 40 MG PO (07:37)
[2024-07-30] MEDS: COZAAR 50 MG PO (07:37)
[2024-07-30] MEDS: VIBRAMYCIN 100 MG PO (07:37)
[2024-07-30] MEDS: DELTASONE 30 MG PO (07:37)
[2024-07-30] MEDS: HEPARIN 5000 UNITS SC (07:39)
[2024-07-30] MEDS: NOVOLOG FLEXPEN-MODERATE RESISTANCE 3 UNITS SC (07:54)
[2024-07-30 11:25] LABS: Glucose - Point of Care 155 mg/dl (70-99)
[2024-07-30] MEDS: NOVOLOG FLEXPEN-MODERATE RESISTANCE 1 UNITS SC (12:02)
[2024-07-30 12:49] VITALS: BP 147/76
--- NOTE | 2024-07-30 14:27 | CM ---
Patient d/c with son. CM called at home to discuss home care PT OT per notes in chart. Son agrees and accepts [facility] in [place]. Referral sent in allscripts. Attending added order.
== END 2024-07-30 13:16 | disposition home health service (06) | DRG 871 ==
LOC: 3 WEST ACU 20:43
PROVIDERS: Physician Assistant Medical; Student in an Organized Health Care Education/Training Program; ADMITTING PHYSICIAN Internal Medicine; ATTENDING PHYSICIAN Internal Medicine; EMERGENCY PHYSICIAN Emergency Medicine
DX: A41.9 Sepsis, unspecified organism (principal); J18.9 Pneumonia, unspecified organism; J96.01 Acute respiratory failure with hypoxia; J44.0 Chronic obstructive pulmonary disease with (acute) lower respiratory infection; F01.A3 Vascular dementia, mild, with mood disturbance; J44.1 Chronic obstructive pulmonary disease with (acute) exacerbation; I25.10 Atherosclerotic heart disease of native coronary artery without angina pectoris; I12.9 Hypertensive chronic kidney disease with stage 1 through stage 4 chronic kidney disease, or unspecified chronic kidney disease; N18.32 Chronic kidney disease, stage 3b; E78.00 Pure hypercholesterolemia, unspecified; E11.22 Type 2 diabetes mellitus with diabetic chronic kidney disease; J84.10 Pulmonary fibrosis, unspecified; Z79.82 Long term (current) use of aspirin; Z79.4 Long term (current) use of insulin; D63.1 Anemia in chronic kidney disease; E11.40 Type 2 diabetes mellitus with diabetic neuropathy, unspecified; F32.A Depression, unspecified; Z86.718 Personal history of other venous thrombosis and embolism; Z96.653 Presence of artificial knee joint, bilateral; F17.210 Nicotine dependence, cigarettes, uncomplicated; Z79.891 Long term (current) use of opiate analgesic; Z95.1 Presence of aortocoronary bypass graft; Z11.52 Encounter for screening for COVID-19
CPT/HCPCS: 71045; 80048; 80053; 82962; 83036; 83880; 85025; 85027; 87502; 87811; 93005; 94640; 96374; 96375; 97116; 97162; 97166; 99285

== ENCOUNTER → 2024-09-04 10:29 | Outpatient (REF) | payer OTHER, SELFPAY | LOC: HWRAD 10:29 | DX: J18.9 Pneumonia, unspecified organism (principal) | CPT/HCPCS: 71046 ==

== ENCOUNTER → 2025-01-11 14:33 | Outpatient (REF) | payer OTHER, SELFPAY | LOC: HWRAD 14:33 | DX: J18.9 Pneumonia, unspecified organism (principal) | CPT/HCPCS: 71046 ==